=== PATIENT | female | born 1945 | race Caucasian/White ===

== ENCOUNTER → 2016-11-18 | Outpatient (CLI) | payer MEDICARE ==
[~2016-11-18] MED LIST: ACTOPLUS MET 501 TAB PO; ALLOPURINOL100 MG PO; ASPIR-LOW81 MG PO; ASPIRIN 81M81 MG/TA2 PO; BELVIQ; COUMADIN 1MG1 MG/TAB PO; CRESTOR10 MG PO; FERROUS SU325 MG/TAB PO; FOLIC ACID 40400 MCG PO; FORTAMET500 MG PO; GLUCOPHAGE XR500 M1 PO; LEVOTHROID0.125 MG PO; LEVOXYL0.125 MG PO; LOZOL1.25 MG PO; MVI; NORCO 325 MG-7.1 TAB PO; OXECTA5 MG PO; PREMARIN .3MG0.3 MG PO; PREMARIN0.625 MG PO; SINGULAIR 110 MG/TAB PO; THERAGRAN1 TA1 PO; TOPAMAX 25MG25 M1; VITAMIN C500 MG PO; VITAMIN D1000 IU PO; ZOCOR 40MG40 MG PO; ZOFRAN 4MG T4 MG/TAB PO; ZYLOPRIM 100MG100 MG PO; indapamide PO
== END ==
LOC: MC.RAD 11-12 07:40
DX: Z12.31 Encounter for screening mammogram for malignant neoplasm of breast (principal)

== ENCOUNTER → 2017-11-23 | Outpatient (CLI) | payer MEDICARE, OTHER | LOC: MC.RAD 08:40 | DX: Z12.31 Encounter for screening mammogram for malignant neoplasm of breast (principal) ==

== ENCOUNTER → 2018-11-25 | Outpatient (CLI) | payer MEDICARE, OTHER | LOC: MC.RAD 10:27 | DX: Z12.31 Encounter for screening mammogram for malignant neoplasm of breast (principal) ==

== ENCOUNTER → 2019-12-02 | Outpatient (CLI) | payer MEDICARE, OTHER | LOC: MC.RAD 12:22 | DX: Z12.31 Encounter for screening mammogram for malignant neoplasm of breast (principal) ==

== ENCOUNTER → 2020-04-17 | Outpatient (CLI) | payer MEDICARE, OTHER | LOC: COL.RAD 13:13 | DX: M16.11 Unilateral primary osteoarthritis, right hip (principal) | CPT/HCPCS: J3301; Q9967 ==

== ENCOUNTER → 2020-09-21 | Outpatient (CLI) | payer MEDICARE, OTHER | LOC: COL.VAS 12:01 | DX: H53.123 Transient visual loss, bilateral (principal) ==

== ENCOUNTER → 2020-10-30 | Outpatient (CLI) | payer MEDICARE, OTHER | LOC: COL.RAD 09:34 | DX: M16.11 Unilateral primary osteoarthritis, right hip (principal) | CPT/HCPCS: J3301; Q9967 ==

== ENCOUNTER → 2020-12-03 | Outpatient (CLI) | payer MEDICARE | LOC: MC.RAD 10:15 | DX: Z12.31 Encounter for screening mammogram for malignant neoplasm of breast (principal) ==

== ENCOUNTER → 2021-05-14 | Outpatient (CLI) | payer MEDICARE | LOC: COL.RAD 08:31 | DX: M16.11 Unilateral primary osteoarthritis, right hip (principal) | CPT/HCPCS: J3301; Q9967 ==

== ENCOUNTER → 2021-12-04 | Outpatient (CLI) | payer MEDICARE | LOC: MC.RAD 12:46 | DX: Z12.31 Encounter for screening mammogram for malignant neoplasm of breast (principal) ==

== ENCOUNTER → 2022-02-13 | Outpatient (CLI) | payer MEDICARE, OTHER | LOC: COL.RAD 08:39 | DX: M25.551 Pain in right hip (principal) | CPT/HCPCS: J3301; Q9967 ==

== ENCOUNTER → 2022-03-04 | Outpatient (CLI) | payer MEDICARE, OTHER | LOC: COL.RAD 15:00 | DX: R35.0 Frequency of micturition (principal) ==

== ENCOUNTER 2022-09-17 13:45 | Outpatient (RCR) | payer MEDICARE, OTHER ==
[~2022-09-17 13:45] MED LIST changes: +FLOMAX 0.40.4 MG/CAP PO; +PERCOCET 325 MG1 TA2 PO; +ZOFRAN ODT4 MG PO
== END 2022-09-19 | disposition home or self-care (01) ==
LOC: PT.GENESIS
DX: M16.11 Unilateral primary osteoarthritis, right hip (principal)

== ENCOUNTER 2023-03-17 14:01 | Observation (INO) | payer MEDICARE, OTHER ==
[~2023-03-17] VITALS: Ht 175.4 cm; Wt 72.0 kg
[~2023-03-17 14:01] MED LIST changes: -LEVOXYL0.125 MG PO; +SYNTHROID0.125 MG/T PO; +THERAGRAN TAB1 UDTAB PO; -THERAGRAN1 TA1 PO; -VITAMIN D1000 IU PO; +VITAMIN D31000 I1 PO
[2023-03-17 14:30] VITALS: BP_SYST 170
[2023-03-17 15:01] LABS: BASO % 0.2 % (0.0-2.0); EOS % 0.3 % (0.0-4.0); GRAN # 8.9 K/mm3 (1.4-6.5); GRAN % 77.3 % (42.2-75.2); HEMATOCRIT 28.6 % (37.0-47.0); HEMOGLOBIN 9.8 g/dl (12.5-16.0); LYMPH # 1.3 K/mm3 (1.2-3.4); MEAN CELL VOLUME 92 fl (80.0-100.0); MEAN CORPUSCULAR HEMOGLOBIN 32 pg (27-31); MEAN CORPUSCULAR HGB CONC 34 g/dl (33.0-37.0); MEAN PLATELET VOLUME 8.7 fl (7.4-10.4); MONO # 1.3 K/mm3 (0.1-0.6); MONO % 10.9 % (1.7-9.3); PLATELET COUNT 200 K/mm3 (130-400); REDCELL DISTRIBUTION WIDTH-CV 13.5 % (11.5-14.5)
[2023-03-17 15:14] LABS: CALCIUM 9.7 mg/dL (8.4-10.2); CREATININE, serum 0.75 mg/dL (0.57-1.11); POTASSIUM 4.1 mmol/L (3.5-4.5)
[2023-03-17] MEDS ORDERED: GLUCOPHAGE500 MG/TAB PO (15:19)
[2023-03-17] MEDS ORDERED: ACTOS 15MG TAB15 MG PO (15:20)
[2023-03-17] MEDS ORDERED: ATROVENTNS0.03% NS (15:22)
[2023-03-17] MEDS ORDERED: FLONASEALLERGY NS (15:23)
[2023-03-17] MEDS ORDERED: PRINIVIL10 MG PO (15:23)
[2023-03-17] MEDS ORDERED: ZYRTEC 10MG10 MG PO (15:24)
[2023-03-17] MEDS ORDERED: PEPCID 20MG TAB20 MG PO (15:25)
--- NOTE | 2023-03-17 15:29 | NUR ---
admitted ambulatory at 1420 to room 323, assisted into room and provided gown, physical assessment and vital signs completed at time of admission, IV started #20g to left forearm and IV fluids started, medicated with morphine 4mg per order see eMAR for time, was c/o pain 12/29 at time given, Dr Christopher in to see patient, remainder of admission assessment completed, is no stating pain is better and refuses toradol at this time, med rec completed, she is resting quietly
[2023-03-17 15:57] VITALS: BP 146/51
--- NOTE | 2023-03-17 15:58 | NUR ---
assisted up to bathroom and voids qs, then back to bed and will try to rest
--- NOTE | 2023-03-17 16:00 | NUR ---
1313-DR. CM CALLED WITH PATIENT AT OFFICE AND WANTS PATIENT TO BE DIRECT ADMITTED FOR PAIN CONTROL OF KIDNEY STONE.
--- NOTE | 2023-03-17 17:00 | NUR ---
awake resting in bed, denies needs at this time
--- NOTE | 2023-03-17 18:45 | NUR ---
bedside shift report given to SUNSHINE Kumari
[2023-03-17 19:14] VITALS: BP 138/47; PULSE 84; TEMP 98.7
--- NOTE | 2023-03-17 19:45 | NUR ---
PT A&O X4 LAYING IN BED WITH AT BEDSIDE. VSS. C/O MILD ABD PAIN & DENYING ANY N/V AT THIS TIME. NS INFUSING @125MLS TO LEFT WRIST. SCDS ON. BED LOWERED & CALL LIGHT IN REACH. PT DENYING FURTHER NEEDS AT THIS TIME.
[2023-03-17 20:00] VITALS: BP_SYST 138
[2023-03-17 23:17] VITALS: BP 136/53; PULSE 79; TEMP 98.9
[2023-03-18] VITALS (13 sets, daily range): BP systolic 136–168; BP diastolic 52–70; PULSE 72–84; TEMP 97.8–98.4
--- NOTE | 2023-03-18 09:17 | NUR ---
[employer] Super[employer] met with patient to discuss discharge planning. Patient lives in [place] with her , Parker (ph#[phone]) and she sees Dr. Patino for primary care. Patient uses [facility] for medications and reported no issues affording them. Patient does not use any DME and is independent with [facility]. Patient reports her DPOA-HC is her , Parker. Patient plans to return home at time of discharge. Discharge Plan: Home
--- NOTE | 2023-03-18 09:41 | NUR ---
Pt doing well this morning and states that she really isn't having any pain at this time. Pt is getting up independently with no issues. Consent signed for surery as she reported that Dr Christopher was in first thing this morning. Pt aware that she cannot have anything to eat or drink. No questions at this time, will continue to monitor
--- NOTE | 2023-03-18 13:00 | NUR ---
Pt continues to do well with minimal pain complaints. Her , Buster, was present most of the day. She is aware that she will not be going to surgery until later this afternoon. Pt denies any needs, will continue to monitor
--- NOTE | 2023-03-18 16:36 | NUR ---
OR staff here to get pt for surgery. Pt did call Buster to notify him.
[2023-03-18] MEDS ORDERED: LEVAQUIN 5500 MG/TA1 PO (17:07)
[2023-03-18] MEDS ORDERED: NORCO 325 MG-51 TAB PO (17:08)
--- NOTE | 2023-03-18 18:50 | NUR ---
Pt arrived back to the floor from OR. She is doing well, no pain complaints, just urge to void. Pt has voided x2 since arriving to the floor. She has ordered something to eat. Spouse at bedside
--- NOTE | 2023-03-18 20:00 | NUR ---
PATIENT MEET DISCHARGE CRITERIA. GAVE DISCHARGE INSTRUCTIONS, DISCUSSED F/U APT AND E-SCRIPTS SENT. RN DC'D IV AND COVERED SITE WITH TOÑO. PATIENT IS DRESSED, PERSONAL BELONGINGS PACKED, AND DISCHARGED WITH TO PERSONAL VEHICLE.
== END 2023-03-18 20:00 | disposition home or self-care (01) ==
LOC: SURG 14:01
PROVIDERS: ADMIT Urology
DX: N20.1 Calculus of ureter (principal); N30.00 Acute cystitis without hematuria; I10 Essential (primary) hypertension; Z79.899 Other long term (current) drug therapy
CPT/HCPCS: C1769; C2617; G0378; J0690; J1885; J2270; J2405; J2704; J3010; J7030; Q9967

== ENCOUNTER 2023-12-16 13:00 | Outpatient (RCR) | payer MEDICARE, OTHER ==
[~2023-12-16 13:00] MED LIST changes: +ACTOS 15MG TAB15 MG PO; +ATROVENTNS0.03% NS; +FLONASEALLERGY NS; +GLUCOPHAGE500 MG/TAB PO; +LEVAQUIN 5500 MG/TA1 PO; +NORCO 325 MG-51 TAB PO; +PEPCID 20MG TAB20 MG PO; +PRINIVIL10 MG PO; +ZYRTEC 10MG10 MG PO
== END 2023-12-20 ==
LOC: PT.GENESIS
DX: M16.11 Unilateral primary osteoarthritis, right hip (principal)

== ENCOUNTER → 2024-01-08 | Outpatient (CLI) | payer MEDICARE, OTHER | LOC: MC.RAD 11:10 | DX: Z12.31 Encounter for screening mammogram for malignant neoplasm of breast (principal) ==